=== PATIENT | male | born 1975 | race Caucasian/White ===

== ENCOUNTER 2016-09-08 16:47 | Emergency (ER) ==
[2016-09-08 16:53] VITALS: BP 137/98; TEMP 97.2; BMI 40.6
--- NOTE | 2016-09-08 17:26 | ED.PDOC ---
General ED Provider: Dr. PHYLLIS ALLEN JR Chief Complaint: Back Pain Stated Complaint: HX OF BACK PROBLEMS FOR YEARS....TODAY SUDDENLY FELT PINCH AND PAIN GOES ACROSS LEFT SHOULDER BLADE.[ End ]SINCE 1230 97.2 98 20 91% 137/ 98 6/10 ABLE TO MOVE BOTH ARMS[ End ]says he felt a pop between shoulder blades around 12:30 pm and pain has been present since then. [ End ] Time Seen by Physician: 17:25 Mode of Arrival: Walk-In Information Source: Patient Exam Limitations: No limitations Primary Care Provider: SYLVESTER LITTLEJOHN Nursing and Triage Documentation Reviewed and Agree: No Review of Systems - Review Of Systems Constitutional: Reports: No symptoms Eyes: Reports: No symptoms Ears, Nose, Mouth, Throat: Reports: No symptoms Respiratory: Reports: No symptoms Cardiac: Reports: No symptoms GI: Reports: No symptoms : Reports: No symptoms Musculoskeletal: Reports: Back pain (T6 TO T LEVEL LINEAR PAIN SHOOTING MIDLINE TO LATERAL LEFT BACK) Skin: Reports: No symptoms Neurological: Reports: No symptoms Endocrine: Reports: No symptoms Hematologic/Lymphatic: Reports: No symptoms All Other Systems: Other Past Medical History - Past Medical History Endocrine: Reports: None Cardiovascular: Reports: None Respiratory: Reports: None Hematological: Reports: None Gastrointestinal: Reports: None Genitourinary: Reports: None Neuro/Psych: Reports: None Musculoskeletal: Reports: Back Pain Cancer: Reports: None - Surgical History General Surgical History: Reports: Back Surgery (LOW BACK) - Family History Family History: Reports: Unknown - Social History Smoking Status: Former smoker Hx Substance Use: No Alcohol Screening: None - Immunizations Tetanus Shot up to Date: Yes Physical Exam - Physical Exam Appearance: Well-appearing, Obese Pain Distress: Moderate Musculoskeletal: Normal strength, ROM intact, No edema, No calf tenderness ( TENDER LEFT THORACIC BACK) Skin: Warm, Dry, Normal color Neurological: Sensation intact, Motor intact, Reflexes intact, Cranial nerves intact, Alert, Oriented Critical Care Note - Critical Care Note Total Time (mins): 0 Course - Course Vital Signs: Temp Pulse Resp BP Pulse Ox 09/08/16 16:47 97.2 F L 98 H 20 137/98 H 91 L Departure - Departure Time of Disposition: 17:37 Disposition: HOME SELF-CARE Discharge Problem: Strain of mid-back Qualifiers: Encounter type: initial encounter Qualifier Code: (S29.012A) Strain of muscle and tendon of back wall of thorax, initial encounter Instructions: Thoracic Back Strain (ED), Core Strengthening Exercises (ED) Condition: Good Pt referred to PMD for follow-up: Yes Additional Instructions: FOLLOW UP PMD DISCUSS REFERRAL CONSIDER MRI REPEAT IF NOT RESOLVED NAPROSYN FOR PAIN NORCO FOR PAIN NOT CONTROLLED [id number] FOR SPASMS(MUSCLE RELAXANT) Allergies/Adverse Reactions: Allergies No Known Allergies Allergy (Unverified 09/08/16 16:55) Home Medications: Ambulatory Orders 1 [No Reported Medications] 09/08/16
== END 2016-09-08 17:45 | disposition home or self-care (01) ==
LOC: ED 16:47
DX: S29.012A Strain of muscle and tendon of back wall of thorax, initial encounter (principal)
CPT/HCPCS: 99282